=== PATIENT | female | born 1990 | race Caucasian/White ===

== ENCOUNTER 2020-10-23 18:16 | Emergency (ER) | payer OTHER ==
[~2020-10-23] VITALS: Ht 165.1 cm; Wt 110.0 kg
[2020-10-23 19:00] VITALS: BP 159/96
[2020-10-23] MEDS ORDERED: ONDANSETRON ODT 4 MG TAB.RAPDIS PO ONE (20:15)
[2020-10-23] MEDS ORDERED: ONDA4TAB7 PO (21:04)
--- NOTE | 2020-10-23 21:04 | PHYS DOC ---
Past History Past Medical History: Depression (NADIA PERDOMO DO) Past Surgical History: Additional Past Surgical Histo: Tooth extraction (NADIA PERDOMO DO) Smoking: Non-smoker Alcohol Use: None Drug Use: Marijuana (NADIA PERDOMO DO) General Adult EDM: Chief Complaint: NAUSEA/VOMITING/DIARRHEA HPI: HPI: Patient is a 30-year-old female presents with nausea/vomiting/diarrhea since Wednesday. Patient states "I had a tooth extracted on Wednesday and was placed on Flagyl 4 times daily". "I have been vomiting a few times a day every day and having diarrhea since then". Unknown last menstrual period due to Mirena. Akhil es abdominal pain. Denies fever. Denies any other symptoms. Denies medical history. (VISH GRAJEDA APRN) Review of Systems: Review of Systems: Constitutional: Denies fever or chills Eyes: Denies change in visual acuity HENT: Denies nasal congestion or sore throat Respiratory: Denies cough or shortness of breath Cardiovascular: Denies chest pain or edema GI: Denies abdominal pain. Reports nausea/vomiting/diarrhea : Denies dysuria Musculoskeletal: Denies back pain or joint pain Integument: Denies rash Neurologic: Denies headache, focal weakness or sensory changes Endocrine: Denies polyuria or polydipsia Lymphatic: Denies swollen glands Psychiatric: Denies depression or anxiety (VISH GRAJEDA APRN) Current Medications: Current Meds: Current Medications Medications (Trade) Dose Ordered Sig/Syd Start Time Stop Time Status Last Admin Dose Admin Ondansetron HCl (Zofran Odt) 4 mg 1X ONCE 10/23/20 20:15 10/23/20 20:16 DC (VISH GRAJEDA APRN) Allergies: Allergies: Allergies Coded Allergies Type Severity Reaction Last Updated Verified No Known Drug Allergies 10/23/20 No (VISH GRAJEDA APRN) Physical Exam: PE: Constitutional: Well developed, well nourished, no acute distress, non-toxic appearance. [] HENT: Normocephalic, atraumatic, bilateral external ears normal, oropharynx moist, no oral exudates, nose normal. [] Eyes: PERRLA, EOMI, conjunctiva normal, no discharge. [] Neck: Normal range of motion, no tenderness, supple, no stridor. [] Cardiovascular:Heart rate regular rhythm, no murmur [] Lungs & Thorax: Bilateral breath sounds clear to auscultation [] Abdomen: Bowel sounds normal, soft, no tenderness, no masses, no pulsatile masses. [] Skin: Warm, dry, no erythema, no rash. [] Back: No tenderness, no CVA tenderness. [] Extremities: No tenderness, no cyanosis, no clubbing, ROM intact, no edema. [] Neurologic: Alert and oriented X 3, normal motor function, normal sensory function, no focal deficits noted. [] Psychologic: Affect normal, judgement normal, mood normal. [] (VISH GRAJEDA APRN) EKG: EKG: [] (VISH GRAJEDA APRN) Radiology/Procedures: Radiology/Procedures: [] (VISH GRAJEDA APRN) Heart Score: C/O Chest Pain: No Risk Factors: Risk Factors: DM, Current or recent (<one month) smoker, HTN, HLP, family history of CAD, obesity. Risk Scores: Score 0 - 3: 2.5% MACE over next 6 weeks - Discharge Home Score 4 - 6: 20.3% MACE over next 6 weeks - Admit for Clinical Observation Score 7 - 10: 72.7% MACE over next 6 weeks - Early Invasive Strategies (VISH GRAJEDA APRN) Course & Med Decision Making: Course & Med Decision Making Pertinent Labs and Imaging studies reviewed. (See chart for details) [] 30-year-old female presents with nausea/vomiting/diarrhea since Wednesday. Patient started Flagyl, 4 times daily. Zofran given. Instructed patient to quit taking the Flagyl and follow-up with her PCP in the morning for further management. Patient sent home with prescription for Zofran. Unknown last menstrual period due to Mirena. UA and ordered to rule out . Patient states that she wants to go home and go to bed. She states "I know I am not I am not waiting for the results". Patient states that she will follow up with her PCP tomorrow. Patient is hemodynamically stable. (VISH GRAJEDA APRN) Dragon Disclaimer: Dragon Disclaimer: This electronic medical record was generated, in whole or in part, using a voice recognition dictation system. (VISH GRAJEDA APRN) Departure Departure: Impression: Primary Impression: Nausea & vomiting Qualified Codes: R11.2 - Nausea with vomiting, unspecified Disposition: 01 HOME / SELF CARE / HOMELESS Condition: STABLE Referrals: YONI HOOVER (PCP) Patient Instructions: Nausea and Vomiting, [id number] Additional Instructions: He was seen in the emergency room for nausea and vomiting. Sending you home with prescription for Zofran. Please call your PCP for a follow-up appointment. Discontinue your Flagyl at this time until you meet with your PCP. EMERGENCY DEPARTMENT GENERAL DISCHARGE INSTRUCTIONS Thank you for coming to [facility] (ED) today and trusting us with you care. We trust that you had a positivie experience in our Emergency Department. If you wish to speak to the department management, you may call the director at [phone]. YOUR FOLLOW UP INSTRUCTIONS ARE FOLLOWS: 1. Do you have a private Doctor? If you do not have a private doctor, please ask for a resource list of physicians or clinics that may be able to assist you with follow up care. 2. The Emergency Physician has interpreted your x-rays. The X-Ray specialist will also review them. If there is a change in the findings, you will be notified in 48 hours when at all possible. 3. A lab test or culture has been done, your results will be reviewed and you will be notified if you need a change in treatment. ADDITIONAL INSTRUCTIONS AND INFORMATION: 1. Your care today has been supervised by a physician who is specially trained in emergency care. Many problems require more than one evaluation for a complete diagnosis and treatment. We recommend that you schedule your follow up appointment as recommended to ensure complete treatment of you illness or injury. If you are unable to obtain follow up care and continue to have a problem, or if your condition worsens, we recommend that you return to the ED. 2. We are not able to safely determine your condition over the phone nor are we able to give sound medical advice over the phone. For these safety reasons, if you call for medical advice we will ask you to come to the ED for further evaluation. 3. If you have any questions regarding these discharge instructions please call the ED at [phone]. SAFETY INFORMATION: In the interest of safety, wellness, and injury prevention; we encourage you to wear your sealbelt, if you smoke; quite smoking, and we encourage family to use a protective helmet for bicycling and other sporting events that present an increased risk for head injury. IF YOUR SYMPTOMS WORSEN OR NEW SYMPTOMS DEVELOP, OR YOU HAVE CONCERNS ABOUT YOUR CONDITION; OR IF YOUR CONDITION WORSENS WHILE YOU ARE WAITING FOR YOUR FOLLOW UP APPOINTMENT; EITHER CONTACT YOUR PRIMARY CARE DOCTOR, THE PHYSICIAN WHOSE NAME AND NUMBER YOU WERE GIVEN, OR RETURN TO THE ED IMMEDIATELY. Scripts Ondansetron Hcl (ZOFRAN) 4 Mg Tablet 4 MG PO TID PRN PRN for NAUSEA for 10 Days, #30 TAB Prov: VISH GRAJEDA APRN 10/23/20 Attending Signature Attending Signature I have reviewed the PA/SENIOR BILLING CONSULTANT's note and plan of care. I was available for consultation as needed during the patient's visit in the emergency department. I agree with the clinical impression, plan, and disposition. (NADIA PERDOMO DO) VISH GRAJEDA APRN Oct 23, 2020 21:04 NADIA PERDOMO DO Oct 23, 2020 23:45
== END 2020-10-23 21:38 | disposition home or self-care (01) ==
LOC: ER 18:16
DX: R11.2 Nausea with vomiting, unspecified (principal); R19.7 Diarrhea, unspecified
CPT/HCPCS: 99283

== ENCOUNTER → 2020-10-28 | Outpatient (CLI) | payer OTHER ==
[2020-10-23 19:00] VITALS: BP 159/96
[~2020-10-28] MED LIST: IOHEXOL 240 MG/ML 50ML VIAL. ONE; IOHEXOL 300 MG/ML 75 ML VIAL. IV ONE; ONDA4TAB7 PO
--- NOTE | 2020-10-28 15:24 | RAD ---
EXAM: Abdomen and pelvis CT with intravenous contrast. HISTORY: Pain. TECHNIQUE: Computed tomographic images of the abdomen and pelvis were obtained following the administ ration of intravenous contrast. Multiplanar reformatting was performed. *One or more of the following individualized dose reduction techniques were utilized for this examina tion: 1. Automated exposure control. 2. Adjustment of the mA and/or kV according to patient size. 3. Use of iterative reconstruction technique. COMPARISON: None. FINDINGS: Evaluation of the lower thorax demonstrates no infiltrate or pleural effusion. There is mil d biliary ductal dilatation, likely due to reservoir effect status post cholecystectomy. No suspiciou s hepatic lesion is seen. The pancreas is unremarkable. There is a splenule adjacent to an otherwise unremarkable spleen. The stomach, adrenal glands and kidneys are unremarkable. There is no appendicitis. There is no bowel obstruction. There is mild circumferential wall thickenin g involving the mid and distal colon likely due to relative under distention. There is no surrounding stranding to suggest acute colitis. There is an IUD within the endometrial cavity. The ovaries are u nremarkable. The urinary bladder is unremarkable. The aorta is normal in caliber. There is no lymphad enopathy. There is a transitional lumbosacral segment. There is no acute or suspicious osseous findin g. IMPRESSION: 1. No convincing acute abdominal or pelvic finding. 2. Mild biliary ductal dilatation, likely due to reservoir effect status post cholecystectomy. Electronically signed by: Ping Salinas MD (10/28/2020 3:22 PM) [id number]
== END ==
LOC: CT 12:08
PROVIDERS: ATTEND Family Medicine Sports Medicine
DX: R10.9 Unspecified abdominal pain (principal); Z90.49 Acquired absence of other specified parts of digestive tract
CPT/HCPCS: 74177; Q9967

== ENCOUNTER 2021-02-25 13:19 | Emergency (ER) | payer OTHER ==
[~2021-02-25] VITALS: Ht 165.1 cm; Wt 110.0 kg
[~2021-02-25 13:19] MED LIST changes: -IOHEXOL 240 MG/ML 50ML VIAL. ONE; -IOHEXOL 300 MG/ML 75 ML VIAL. IV ONE
[2021-02-25 15:14] VITALS: BP 158/103
--- NOTE | 2021-02-25 15:57 | RAD ---
EXAM: Chest, single view. HISTORY: Shortness of breath. COMPARISON: None. FINDINGS: A frontal view of the chest is obtained. There is diffuse left lung interstitial infiltrate . There is no consolidation, pleural effusion or pneumothorax. The heart is normal in size. IMPRESSION: Left lung interstitial infiltrate. Follow-up to confirm resolution. Electronically signed by: Ping Salinas MD (02/25/2021 3:54 PM) [id number]
[2021-02-25 15:58] LABS: INFLUENZA A PATIENT NEGATIVE (NEGATIVE); INFLUENZA B PATIENT NEGATIVE (NEGATIVE)
[2021-02-25] MEDS ORDERED: AZIT250T6 PO (16:27)
--- NOTE | 2021-02-25 16:27 | PHYS DOC ---
Past History Past Medical History: Depression Past Surgical History: Additional Past Surgical Histo: Tooth extraction Smoking: Non-smoker Alcohol Use: None Drug Use: Marijuana General Adult EDM: Chief Complaint: SHORTNESS OF BREATH HPI: HPI: 31-year-old female presents with cough, fever, body aches. She is vaccinated against COVID-19 but did not get a booster. She has not measured a fever but she has had sweating and feeling like she is freezing. She has had a nonproductive cough and generalized fatigue. She has no other complaints this time. Review of Systems: Review of Systems: Constitutional: Denies fever or chills. Body aches, fatigue. Eyes: Denies change in visual acuity HENT: Denies nasal congestion or sore throat Respiratory: Cough with mild shortness of breath Cardiovascular: Denies chest pain or edema GI: Denies abdominal pain, nausea, vomiting, bloody stools or diarrhea : Denies dysuria Musculoskeletal: Denies back pain or joint pain Integument: Denies rash Neurologic: Denies headache, focal weakness or sensory changes Endocrine: Denies polyuria or polydipsia Lymphatic: Denies swollen glands Psychiatric: Denies depression or anxiety Allergies: Allergies: Allergies Coded Allergies Type Severity Reaction Last Updated Verified Sulfa (Sulfonamide Antibiotics) Allergy Unknown 02/25/21 Yes Physical Exam: PE: Constitutional: Well developed, well nourished, morbidly obese, no acute distress, non-toxic appearance. [] HENT: Normocephalic, atraumatic, bilateral external ears normal, oropharynx moist, no oral exudates, nose normal. [] Eyes: PERRLA, EOMI, conjunctiva normal, no discharge. [] Neck: Normal range of motion, no tenderness, supple, no stridor. [] Cardiovascular:Heart rate regular rhythm, no murmur [] Lungs & Thorax: Bilateral breath sounds clear to auscultation [] Abdomen: Bowel sounds normal, soft, no tenderness, no masses, no pulsatile masses. [] Skin: Warm, dry, no erythema, no rash. [] Back: No tenderness, no CVA tenderness. [] Extremities: No tenderness, no cyanosis, no clubbing, ROM intact, no edema. [] Neurologic: Alert and oriented X 3, normal motor function, normal sensory function, no focal deficits noted. [] Psychologic: Affect normal, judgement normal, mood normal. [] Current Patient Data: Labs: Laboratory Tests Test 02/25/21 15:15 Influenza Type A (Rapid) Negative (NEGATIVE) Influenza Type B (Rapid) Negative (NEGATIVE) Vital Signs: Vital Signs Date Time Temp Pulse Resp B/P (MAP) Pulse Ox O2 Delivery O2 Flow Rate FiO2 02/25/21 15:14 98.0 65 16 158/103 (121) 97 Room Air EKG: EKG: [] Radiology/Procedures: Radiology/Procedures: [] Impressions: EXAM: Chest, single view. HISTORY: Shortness of breath. COMPARISON: None. FINDINGS: A frontal view of the chest is obtained. There is diffuse left lung interstitial infiltrate. There is no consolidation, pleural effusion or pneumothorax. The heart is normal in size. IMPRESSION: Left lung interstitial infiltrate. Follow-up to confirm resolution. Electronically signed by: Ping Salinas MD (02/25/2021 3:54 PM) [id number] DICTATED AND SIGNED BY: PING SALINAS MD DATE: 02/25/21 1554 CC: VERA GUZMAN DO; YONI HOOVER-BC ~MTH0 0 Heart Score: C/O Chest Pain: N/A Risk Factors: Risk Factors: DM, Current or recent (<one month) smoker, HTN, HLP, family history of CAD, obesity. Risk Scores: Score 0 - 3: 2.5% MACE over next 6 weeks - Discharge Home Score 4 - 6: 20.3% MACE over next 6 weeks - Admit for Clinical Observation Score 7 - 10: 72.7% MACE over next 6 weeks - Early Invasive Strategies Course & Med Decision Making: Course & Med Decision Making Pertinent Labs and Imaging studies reviewed. (See chart for details) The patient appears to have a left interstitial infiltrate. This could be COVID-19 or could be bacterial pneumonia. I will treat with azithromycin and give the first dose in the ED. She is stable for discharge at this time. [] Dragon Disclaimer: Dragon Disclaimer: This electronic medical record was generated, in whole or in part, using a voice recognition dictation system. Departure Departure: Impression: Primary Impression: Pneumonia involving left lung Additional Impression: Suspected 2019 novel coronavirus infection Disposition: HOME / SELF CARE / HOMELESS Condition: STABLE Referrals: YONI HOOVERP-BC (PCP) Patient Instructions: Pneumonia, Adult, [id number] Additional Instructions: You have been tested for or diagnosed with COVID-19. It is an infection caused by a new type of coronavirus. COVID-19 will cause cold-like or mild flu symptoms in most. It can cause more severe symptoms like problems breathing in some. There is no treatment for COVID-19. The body will clear the infection over time. Self-care will help to ease discomfort. Steps to Take: Self-Care Rest as needed. Healthy habits may help you feel better. Steps include: Choose healthy foods including fruits and vegetables. Drink water throughout the day. Get plenty of sleep each night. If you smoke, try to quit. It may ease breathing. Avoid alcohol. Keep Others Healthy The virus can spread to others. Droplets are released every time you sneeze or cough. The droplets can get into the mouth, nose, or eyes of people near you and lead to infection. To lower the chances of spreading COVID-19 to others: Stay at home until your doctor has said it is safe to leave. If you tested positive this will mean staying isolated until both of the following are true: At least 7 days have passed since the start of illness. You are free of fever for at least 72 hours without the use of medicine. During this time: - Avoid public areas, events, or transportation. Do not return to work or school until your doctor has said it is safe to do so. - Call ahead if you need to go to a medical center. Let them know you may have COVID-19. It will help them guide you where to go. They may also ask you to wear a facemask when you come to the office. - If you call for emergency medical services, let them know you may have COVID- 19. While at home: - Try to avoid close contact with others. Stay about 6 feet away. - If possible, spend most of your time in a separate room from others. - Use a face mask if you will be in close contact with others such as sharing a room or vehicle. - Have someone wipe down common surfaces in the home. Use household [facility] every day on areas like doorknobs, counters, or sinks. - Cough or sneeze into a tissue. Throw the tissue away right after use. If a tissue is not available, cough or sneeze into your elbow. - Wash your hands often. Wash them after sneezing or coughing. Use soap and water and wash for at least 20 seconds. Alcohol based hand drain cleaner can be used if soap and water is not available. - Do not prepare food for others. Avoid sharing personal items like forks, spoons, or toothbrushes. - Avoid close contact with pets while you are sick. There is no evidence of the virus passing to pets. This is a safety step until more is known about this virus. Isolation can be frustrating. Social interaction can help. Keep in touch with friends and family through phone and tech options. You can still interact with others in your home, just keep a safe distance of about 6 feet. Follow-up: Your doctors office will check in with you to see if there are any changes in your health. You may be asked to keep track of symptoms to share with them. They will also let you know when you are clear to be in public again. Problems to Look Out For: Contact your doctor if your recovery is not going as you expect. Get emergency care if you have problems such as: - Trouble breathing - Nonstop chest pain or pressure - Changes in awareness, confusion, or problems waking - Lips or face have bluish color - Worsening of symptoms If you think you have an emergency, call for emergency medical services right away. [facility] Scripts Azithromycin (AZITHROMYCIN TABLET) 250 Mg Tablet 250 MG PO DAILY for ANTI-BIOTIC for 4 Days, #4 TAB 0 Refills Prov: VERA GUZMAN DO 02/25/21 VERA GUZMAN DO Feb 25, 2021 16:27
[2021-02-25] MEDS ORDERED: AZITHROMYCIN 250 MG TABLET. PO ONE (16:45)
--- NOTE | 2021-02-26 15:24 | NUR ---
PATIENT NOTIFIED OF COVID AND FLU RESULTS
== END 2021-02-25 16:37 | disposition home or self-care (01) ==
LOC: ER 13:19
DX: J18.9 Pneumonia, unspecified organism (principal); Z20.822 Contact with and (suspected) exposure to COVID-19; Z88.2 Allergy status to sulfonamides
CPT/HCPCS: 71045; 87804; 99284; C9803; U0003

== ENCOUNTER → 2021-03-03 | Outpatient (CLI) | payer OTHER ==
[2021-02-25 15:14] VITALS: BP 158/103
[~2021-03-03] MED LIST changes: +AZIT250T6 PO
--- NOTE | 2021-03-03 12:22 | RAD ---
EXAMINATION: Chest radiograph. VIEWS: Frontal and lateral views of the chest COMPARISON: 02/25/2021 INDICATION:31 years, Female, follow-up left lung interstitial infiltrate. FINDINGS: Stable cardiomediastinal silhouette. Decreasing diffuse left lung interstitial infiltrate. No focal c onsolidation. No pleural effusion or pneumothorax. No acute osseous process. IMPRESSION: Decreasing left lung infiltrate. No new focal airspace consolidation. Electronically signed by: Gregory Cordova DO (03/03/2021 12:19 PM) [id number]
== END ==
LOC: RAD 11:45
PROVIDERS: ATTEND Nurse Practitioner
DX: R91.8 Other nonspecific abnormal finding of lung field (principal); Z87.01 Personal history of pneumonia (recurrent)
CPT/HCPCS: 71046